=== PATIENT | male | born 1930 | race Caucasian/White ===

== ENCOUNTER 2021-10-25 23:34 | Observation (INO) ==
[2021-10-26] MEDS ORDERED: KETOROLAC TROMETHAMINE 15 MG/ML VIAL IV ONE (00:38)
[2021-10-26] MEDS ORDERED: ACETAMINOPHEN 500 MG TAB PO STA (00:38)
[2021-10-26] MEDS ORDERED: SODIUM CHLORIDE 0.9% 1000ML 1,000 ML IV SCH (00:45)
[2021-10-26] MEDS ORDERED: ACETAMINOPHEN 1000 MG/100 ML IV IV STA (00:52)
--- NOTE | 2021-10-26 00:58 | Emergency Department Note ---
Impression & Plan Weakness, Hypotension, Acute dehydration, COVID-19, Pneumonia ED Provider Note NAME: ANNIA MAGDALENO AGE: 89 SEX: M : 1930 ARRIVES VIA: Ambulance INFORMANT: [Patient][family] ED PROVIDER(S): [Roland Negrete MD] CHIEF COMPLAINT: Weakness HISTORY OF PRESENT ILLNESS: Patient is an 89-year-old male who presents to the ER with some congestion that was noticed about 3 days ago. Things have progressed. The patient has become more congestion, more tired, more fatigued. When he first became ill, he was tested negative for COVID. Today, when he seemed worse, he was tested again and the COVID test was positive. Today, the patient's been running a fever. His blood pressure was recorded low at home. He could barely stand or even hold his head up. The family was c oncerned and EMS was summoned. The patient denies any shortness of breath or pain. He does feel weak and tired. There has been no vomiting or diarrhea. The patient lives currently with his . His daughter is at the bedside and provides most of the history. REVIEW OF SYSTEMS: See HPI for pertinent positives and negatives. A total of ten systems were reviewed and were otherwise negative. PMHx/PSHx: See Below SOCIAL HISTORY: See Below. PHYSICAL EXAM: GENERAL: Patient is in no acute distress. Thin and frail. HEENT: No acute trauma, normocephalic atraumatic, mucous membranes moist, no nasal congestion, no scleral icterus. NECK: No stridor, no adenopathy, no meningismus, trachea is midline. LUNGS: Scattered crackles bilaterally, no respiratory distress, no wheezing. HEART: Without murmurs gallops or rubs, regular rate and rhythm. ABDOMEN: Soft, nontender, bowel sounds positive, no peritonitis. EXTREMITIES: No cyanosis or edema, full range of motion of all the joints without pain or difficulty, no signs for acute trauma. NEUROLOGIC: Sleepy but awakes to voice, no speech slur. No focal weakness. SKIN: No rash, no jaundice, no diaphoresis. DIFFERENTIAL DIAGNOSIS: Infection, dehydration, COVID-19, UTI metabolic abnormality, hypo/hyperglycemia, electrolyte disturbance, anemia, hypoxia, cardiac sources, intracerebral event, toxicologic issues, stroke, TIA, as well as other pathologies. EMERGENCY DEPARTMENT COURSE/PROCEDURES: ECG: Indication was weakness. The ECG shows a normal sinus rhythm with a rate of 66. There are inverted T waves in the anterior and lateral leads. No ST elevation, no PVCs. The QTC was 465. No old ECGs to use for comparison. Continuous Cardiac Monitoring: An order was placed for continuous cardiac monitoring. The monitor shows a rate of 62 with normal sinus rhythm. Critical Care Note: I have personally spent 39 minutes of critical care time in the direct management of this patient. This includes bedside care, i nterpretation of diagnostic studies, and testing, discussion with consultants, patient, and family members, and other required patient management activities. This 39 minutes is in excess of all separately billable procedures. MEDICAL DECISION MAKING: There is no leukocytosis. A mild anemia was seen with a hemoglobin of 11.5. No old or hemoglobin values available for comparison. Platelet count was low at 109. No renal failure, no significant electrolyte abnormality. Lactic acid level was not elevated making severe sepsis less likely. ECG showed a normal si nus rhythm. There were some inverted T waves. No old ECGs available for comparison. Cardiac troponin was mildly elevated, this elevation could be consistent with cardiac injury or potentially demand ischemia. The patient appeared to be in a euthyroid state. COVID test returned positive. Chest film shows a potential left base infiltrate versus atelectasis. No CHF. No pneumothorax. On exam, the patient was quite sleepy and appeared dehydrated clinically. The patient was given IV saline, 1 L. He was given IV Toradol, IV ceftriaxone and IV Tylenol. The patient presents with weakness, fatigue, hypotension. He was dehydrated clinically. He may have a developing pneumonia at the left base. Given his age, given his findings and complaints, he does require a hospital stay. I spoke with the patient's daughter, I talked to the patient. I did speak with case management. The on-call hospitalist was consulted. Past Med/Surg History Medical History Hypertension Social History Smoking Status: Never smoker Feels Safe at Home: Yes Allergies Allergies Allergy/AdvReac Type Severity Reaction Status Date / Time No Known Allergies Allergy Verified 10/26/21 01:12 Home Meds Home Medications Medication Instructions Recorded Confirmed apixaban 5 mg tablet (Eliquis) 5 mg PO BID 10/26/21 10/26/21 levothyroxine 50 mcg tablet 50 mcg PO DAILYBB 10/26/21 10/26/21 (Synthroid) lisinopril 20 mg tablet 20 mg PO DAILY 10/26/21 10/26/21 metoprolol succinate 50 mg 50 mg PO DAILY 10/26/21 10/26/21 tablet,extended release 24 hr multivitamin 1 tab PO DAILY 10/26/21 10/26/21 omega-3 fatty acids 1,250 mg 1,250 mg PO DAILY 10/26/21 10/26/21 capsule saw palmetto 450 mg capsule 0 mg PO DAILY 10/26/21 10/26/21 Results & Data (ED) Vital Signs Vital Signs - 24 hr 10/25/21 23:47 10/25/21 23:48 10/25/21 23:55 Temperature 36.7 C 36.7 C Temperature Source Oral Oral Pulse Rate 62 Pulse Rate [Apical] 65 Pulse Rhythm Pulse Rhythm [Apical] Regular Pulse Strength [Apical] Normal Respiratory Rate 22 22 Respiratory Effort / Characteristics Non-Labored Spontaneous Non-Labored Spontaneous Respiratory Depth Normal Normal Respiratory Pattern Regular Regular Blood Pressure 105/57 L Blood Pressure [Right Arm] 92/59 L Blood Pressure Mean 73 Blood Pressure Mean [Right Arm] 70 Blood Pressure Position Semi-fowlers Blood Pressure Position [Right Arm] Semi-fowlers Pulse Oximetry 94 94 94 Oxygen Delivery Method Room Air Room Air Room Air Oxygen Flow Rate 0 Sepsis Recent Fever Within 48 Hours Yes Sepsis New/Unexplained Change in Mental Status No Sepsis Action Taken by Nursing No Action Required 10/26/21 01:20 10/26/21 02:00 10/26/21 04:00 Temperature Temperature Source Pulse Rate 53 L Pulse Rate [Apical] 52 L 47 L Pulse Rhythm Regular Pulse Rhythm [Apical] Regular Regular Pulse Strength [Apical] Normal Normal Respiratory Rate 22 20 20 Respiratory Effort / Characteristics Non-Labored Spontaneous Non-Labored Spontaneous Respiratory Depth Normal Normal Respiratory Pattern Regular Regular Blood Pressure Blood Pressure [Right Arm] 118/57 L 125/57 L Blood Pressure Mean Blood Pressure Mean [Right Arm] 77 79 Blood Pressure Position Blood Pressure Position [Right Arm] Lying Lying Pulse Oximetry 96 95 94 Oxygen Delivery Method Room Air Room Air Room Air Oxygen Flow Rate Sepsis Recent Fever Within 48 Hours Sepsis New/Unexplained Change in Mental Status Sepsis Action Taken by Nursing 10/26/21 06:00 Temperature Temperature Source Pulse Rate Pulse Rate [Apical] 46 L Pulse Rhythm Pulse Rhythm [Apical] Regular Pulse Strength [Apical] Normal Respiratory Rate 20 Respiratory Effort / Characteristics Non-Labored Spontaneous Respiratory Depth Normal Respiratory Pattern Regular Blood Pressure Blood Pressure [Right Arm] 97/50 L Blood Pressure Mean Blood Pressure Mean [Right Arm] 65 Blood Pressure Position Blood Pressure Position [Right Arm] Lying Pulse Oximetry 94 Oxygen Delivery Method Room Air Oxygen Flow Rate Sepsis Recent Fever Within 48 Hours Sepsis New/Unexplained Change in Mental Status Sepsis Action Taken by [facility] Medications Current Medication List: was personally reviewed by me Laboratory Data Attestation: I reviewed the patient's lab results. Result diagrams: 10/26/21 10:49 10/26/21 10:49 Lab Results 10/25/21 10/25/21 10/25/21 Range/Units 23:07 23:07 23:07 WBC 6.08 (4.8-10.8) K/ul RBC 4.01 L (4.63-6.08) M/uL Hgb 11.5 L (14.0-18.0) g/dl Hct 35.6 L (40.1-51.0) % MCV 88.8 (80.0-100.0) fL MCH 28.7 (25.0-34.0) pg MCHC 32.3 (32.0-36.0) g/dL RDW Std Deviation 48.3 H (36.4-46.3) fL RDW Coeff of Judy 15.0 H (11.5-14.5) % Plt Count 109 L (130-400) K/uL MPV 13.2 H (9.4-12.4) fL Immature Gran % (Auto) 0.3 % Neut % (Auto) 73.1 % Lymph % (Auto) 12.8 % [place] % (Auto) 13.3 % Eos % (Auto) 0.0 % Baso % (Auto) 0.5 % Neut # (Auto) 4.44 (1.4-6.5) K/uL Lymph # (Auto) 0.78 L (1.2-3.4) K/uL [place] # (Auto) 0.81 (0.24-0.82) K/uL Eos # (Auto) 0.00 (0-0.50) K/uL Baso # (Auto) 0.03 (0-0.2) K/uL Immature Gran # (Auto) 0.02 (0.00-0.02) K/uL Sodium 135 L (136-145) mmol/L Potassium 3.9 (3.5-5.1) mmol/L Chloride 103 (98-107) mmol/L Carbon Dioxide 25 (21-32) mmol/L Anion Gap 7 (3-11) BUN 29 H (6-23) mg/dl Creatinine 1.32 (0.6-1.4) mg/dl Est Cr Clr Drug Dosing 35.5 ml/min Est GFR ( Amer) 55.0 ml/min Est GFR (Non-Af Amer) 47.5 ml/min BUN/Creatinine Ratio 22.0 H (10-20) Glucose 194 H (70-99(Fasting)) mg/dl Lactate (0.4-2.0) mmol/L Calcium 8.4 L (8.5-10.1) mg/dl Magnesium 1.7 (1.7-2.4) mg/dl Total Bilirubin 0.7 (0.2-1.0) mg/dl AST 26 (13-39) U/L ALT 17 (7-52) U/L Alkaline Phosphatase 79 (34-104) U/L Troponin I High Sens 34.8 H (0-20) pg/ml Total Protein 5.8 L (6.0-8.3) gm/dl Albumin 3.6 (3.4-5.0) gm/dl Globulin 2.2 L (2.5-4.0) gm/dl Albumin/Globulin Ratio 1.6 (0.9-2) TSH 1.810 (0.300-4.500) uIu/ml SARS-CoV-2, RNA, NAAT (NEGATIVE) 10/25/21 10/26/21 Range/Units 23:50 01:18 WBC (4.8-10.8) K/ul RBC (4.63-6.08) M/uL Hgb (14.0-18.0) g/dl Hct (40.1-51.0) % MCV (80.0-100.0) fL MCH (25.0-34.0) pg MCHC (32.0-36.0) g/dL RDW Std Deviation (36.4-46.3) fL RDW Coeff of Judy (11.5-14.5) % Plt Count (130-400) K/uL MPV (9.4-12.4) fL Immature Gran % (Auto) % Neut % (Auto) % Lymph % (Auto) % [place] % (Auto) % Eos % (Auto) % Baso % (Auto) % Neut # (Auto) (1.4-6.5) K/uL Lymph # (Auto) (1.2-3.4) K/uL [place] # (Auto) (0.24-0.82) K/uL Eos # (Auto) (0-0.50) K/uL Baso # (Auto) (0-0.2) K/uL Immature Gran # (Auto) (0.00-0.02) K/uL Sodium (136-145) mmol/L Potassium (3.5-5.1) mmol/L Chloride (98-107) mmol/L Carbon Dioxide (21-32) mmol/L Anion Gap (3-11) BUN (6-23) mg/dl Creatinine (0.6-1.4) mg/dl Est Cr Clr Drug Dosing ml/min Est GFR ( Amer) ml/min Est GFR (Non-Af Amer) ml/min BUN/Creatinine Ratio (10-20) Glucose (70-99(Fasting)) mg/dl Lactate 1.0 (0.4-2.0) mmol/L Calcium (8.5-10.1) mg/dl Magnesium (1.7-2.4) mg/dl Total Bilirubin (0.2-1.0) mg/dl AST (13-39) U/L ALT (7-52) U/L Alkaline Phosphatase (34-104) U/L Troponin I High Sens (0-20) pg/ml Total Protein (6.0-8.3) gm/dl Albumin (3.4-5.0) gm/dl Globulin (2.5-4.0) gm/dl Albumin/Globulin Ratio (0.9-2) TSH (0.300-4.500) uIu/ml SARS-CoV-2, RNA, NAAT POSITIVE A* (NEGATIVE) Administered Medications Apixaban (Apixaban 5 Mg Tablet) 5 mg PO BID TOSHIA Stop: 11/25/21 10:44 Last Admin: 10/26/21 10:52 Dose: 5 mg Documented By: NOLVIA Dextrose/Sodium Chloride (D5w And Nss) 1,000 mls @ 100 mls/hr IV .Q10H TOSHIA Stop: 10/26/21 20:44 Last Admin: 10/26/21 12:44 Dose: 100 mls/hr Documented By: SAMEERA Levothyroxine Sodium (Levothyroxine Sodium 50 Mcg Tablet) 50 mcg PO DAILYBB TOSHIA Stop: 11/25/21 10:44 Last Admin: 10/26/21 10:52 Dose: 50 mcg Documented By: NOLVIA Lisinopril (Lisinopril 20 Mg Tab) 20 mg PO DAILY TOSHIA Stop: 11/25/21 10:44 Last Admin: 10/26/21 10:52 Dose: 20 mg Documented By: NOLVIA Metoprolol Succinate (Metoprolol Succ 50mg Ext Rel Tab) 50 mg PO DAILY TOSHIA Stop: 11/25/21 10:44 Last Admin: 10/26/21 10:54 Dose: Not Given Documented By: NOLVIA Multivitamins (Multivitamin Tab) 1 tab PO DAILY TOSHIA Stop: 11/25/21 10:44 Last Admin: 10/26/21 10:52 Dose: 1 tab Documented By: NOLVIA Discontinued Medications Acetaminophen (Acetaminophen 500 Mg Tab) 1,000 mg PO NOW STA Stop: 10/26/21 00:39 Last Admin: 10/26/21 01:25 Dose: Not Given Documented By: YAS Acetaminophen (Acetaminophen 1000 Mg/100 Ml Iv) 1,000 mg IV NOW STA Stop: 10/26/21 00:53 Last Admin: 10/26/21 01:23 Dose: 1,000 mg Documented By: YAS Sodium Chloride (Nss 1000ml) 1,000 mls @ 999 mls/hr IV .Q1H1M TOSHIA Stop: 10/26/21 01:45 Last Infusion: 10/26/21 02:35 Dose: 0 mls/hr Documented By: Admin: 10/26/21 01:21 Dose: 999 mls/hr Documented By: YAS Ceftriaxone Sodium (Rocephin) 2,000 mg in 70 mls @ 140 mls/hr IV NOW STA Stop: 10/26/21 03:25 Last Infusion: 10/26/21 04:02 Dose: 0 mls/hr Documented By: Admin: 10/26/21 03:12 Dose: 140 mls/hr Documented By: YAS Ketorolac Tromethamine (Ketorolac Tromethamine 15 Mg/Ml Vial) 10 mg IV NOW ONE Stop: 10/26/21 00:39 Last Admin: 10/26/21 01:24 Dose: 10 mg Documented By: YAS Imaging Data Radiologist's Impression: Chest X-Ray 10/26/21 00:38 XR chest 1V portable HISTORY: 89 years-old Male weakness acute weakness COMPARISON: None TECHNIQUE: AP view of the chest FINDINGS: Cardiac silhouette is upper limits of normal in size. Prior median sternotomy. No pneumothorax or overt pulmonary edema. Small left with possible trace right pleural effusions. Mild left basilar consolidation. The bones appear grossly intact. IMPRESSION: 1. Small left pleural effusion with left basilar densities suggestive of atelectasis versus pneumonia. 2. Mild cardiomegaly. ACT 112: Negative or not required by law. The above report was generated using voice recognition software. It may contain grammatical, syntax or spelling errors. Electronically signed by: Damian Patel M.D. 10/26/2021 8:50 AM Discharge Plan Visit Data Chief Complaint: Weakness ED Provider: Roland Negrete Discharge Problem: Weakness, Hypotension, Acute dehydration, COVID-19, Pneumonia Patient Disposition: Admitted As Inpatient Condition: Fair Discharge Instructions Interventions: ED Discharge Assessment Last Done: 10/26/21 10:09
[2021-10-26 01:06] LABS: Hematocrit (blood only) 35.6 % (40.1-51.0); Hemoglobin 11.5 g/dl (14.0-18.0); Mean Corpuscular Hemoglobin 28.7 pg (25.0-34.0); Mean Corpuscular Hgb Conc 32.3 g/dL (32.0-36.0); Mean Corpuscular Volume 88.8 fL (80.0-100.0); RDW Standard Deviation 48.3 fL (36.4-46.3); Red Blood Count 4.01 M/uL (4.63-6.08); White Blood Count 6.08 K/ul (4.8-10.8)
[2021-10-26 01:13] LABS: Basophils # (auto) 0.03 K/uL (0-0.2); Basophils % (auto) 0.5 %; Immature Granulocytes # (auto) 0.02 K/uL (0.00-0.02); Immature Granulocytes % (auto) 0.3 %; Lymphocytes # (auto) 0.78 K/uL (1.2-3.4); Lymphocytes % (auto) 12.8 %; Mean Platelet Volume 13.2 fL (9.4-12.4); Monocytes # (auto) 0.81 K/uL (0.24-0.82); Monocytes % (auto) 13.3 %; Neutrophils # (auto) 4.44 K/uL (1.4-6.5); Neutrophils % (auto) 73.1 %; Platelet Count 109 K/uL (130-400)
[2021-10-26 01:30] LABS: Albumin Globulin Ratio 1.6 (0.9-2); Albumin Level 3.6 gm/dl (3.4-5.0); Bilirubin,Total 0.7 mg/dl (0.2-1.0); Calcium 8.4 mg/dl (8.5-10.1); Creatinine Clr Calc Pharmacy 35.5 ml/min; Est GFR (Non-African American) 47.5 ml/min; Globulin 2.2 gm/dl (2.5-4.0); Magnesium 1.7 mg/dl (1.7-2.4); Potassium 3.9 mmol/L (3.5-5.1); Total Protein 5.8 gm/dl (6.0-8.3)
[2021-10-26 01:35] LABS: Troponin I High Sensitivity 34.8 pg/ml (0-20)
[2021-10-26] MEDS ORDERED: cefTRIAXone SODIUM 2,000 MG/70 ML BAG IV STA (02:56)
--- NOTE | 2021-10-26 08:51 | XRay Report ---
XR chest 1V portable HISTORY: 89 years-old Male weakness acute weakness COMPARISON: None TECHNIQUE: AP view of the chest FINDINGS: Cardiac silhouette is upper limits of normal in size. Prior median sternotomy. No pneumothorax or ove rt pulmonary edema. Small left with possible trace right pleural effusions. Mild left basilar consoli dation. The bones appear grossly intact. IMPRESSION: 1. Small left pleural effusion with left basilar densities suggestive of atelectasis versus pneumonia . 2. Mild cardiomegaly. ACT 112: Negative or not required by law. The above report was generated using voice recognition software. It may contain grammatical, syntax o r spelling errors. Electronically signed by: Damian Patel M.D. 10/26/2021 8:50 AM
--- NOTE | 2021-10-26 09:18 | Electrocardiogram Report ---
Test Reason : Blood Pressure : / mmHG Vent. Rate : 066 BPM Atrial Rate : 066 BPM P-R Int : 150 ms QRS Dur : 082 ms QT Int : 444 ms P-R-T Axes : 029 000 196 degrees QTc Int : 465 ms Normal sinus rhythm Left atrial enlargement Cannot rule out Old Septal infarct T-wave inversion in multiple leads (ischemia vs. CHILD NURSE vs. metabolic) Abnormal ECG No previous ECGs available Confirmed by Mike Mak ([id number]) on 10/26/2021 9:18:40 AM Referred By: REFERRED SELF Confirmed By:Mike Mak
--- NOTE | 2021-10-26 09:57 | History and Physical Report ---
DATE OF ADMISSION: 10/26/2021. CHIEF COMPLAINT: Weakness, COVID. HISTORY OF PRESENT ILLNESS: An 89-year-old male with past medical history significant for CAD, status post CABG 30 years ago, about 5 years ago had another AZ, no stents as per the daughter, history of hypothyroidism, hypertension, who lives at home with his , ambulates without support, comes because of weakness. As per the daughter, since last Wednesday, he has been having fevers, some mild cough,runny nose, feeling weak, poor appetite. They tested COVID a couple of days ago, it was negative and last night as he was getting worse, sleepy, lethargic and tested again and COVID came back positive and brought him to the hospital. He was COVID vaccinated 2 times, but not boosted. Currently saturating okay in the room. Chest x-ray was okay. The patient is somewhat drowsy. As per daughter, no complaints of headache, has a lot of runny nose, appetite is down. Denied any body aches or chest pain or abdominal pain. There was no nausea, not sure if he has diarrhea. Currently, no swelling in the legs. The patient's daughter say when he had AZ 5 years ago, they started him on a blood thinner, it looks like he is on Eliquis. ALLERGIES: No known drug allergies. PAST MEDICAL HISTORY: As mentioned above. PAST SURGICAL HISTORY: CABG, appendectomy. MEDICATIONS: The patient is on Eliquis 5 mg p.o. b.i.d., levothyroxine 50 mcg p.o. daily, lisinopril 20 mg p.o. daily, metoprolol succinate 50 mg p.o. daily, multivitamin 1 tablet daily, omega-3 fatty acid 1250 mg p.o. daily. FAMILY HISTORY: Noncontributory. SOCIAL HISTORY: No smoking, no alcohol. Lives with his . REVIEW OF SYSTEMS: As per HPI. The patient is hard of hearing and drowsy. Could not get complete review of symptoms. PHYSICAL EXAMINATION: GENERAL: The patient is old and frail, not in acute distress, somewhat drowsy. VITAL SIGNS: Temperature 36.7, pulse 46, blood pressure 97/50, respiratory rate 20, oxygen 94% on room air. HEENT: Pupils equal, round and reactive to light. Oral mucosa moist. NECK: No JVD. No neck masses. CARDIOVASCULAR: S1 and S2 heard. Regular rate and rhythm. No murmur, no gallop. RESPIRATORY SYSTEM: Normal AP diameter. No accessory muscle use. No wheezing, no crackles. ABDOMEN: Soft, bowel sounds present, nontender, no distention. CENTRAL NERVOUS SYSTEM: Drowsy, but arousable. No facial droop. Speech is clear. Obeys simple commands. EXTREMITIES: No edema, no erythema. LABORATORY DATA: WBC 6, hemoglobin 11.5, hematocrit 35.6, platelets 109. Sodium 135, potassium 3.9, chloride 103, bicarbonate 25, BUN 29, creatinine 1.3, serum glucose 194, lactate 1, calcium 8.4, magnesium 1.7, total bilirubin 0.7, AST 26, ALT 17, alkaline phosphatase 110. Troponin I high sensitivity 34.8. TSH 1.8. Rapid COVID test positive. Chest x-ray: No acute findings. EKG: Normal sinus rhythm, rate of 66, some T- wave inversions in anterolateral leads. No old EKG to compare. ASSESSMENT AND PLAN: This is an 89-year-old male who presents with weakness and found to be COVID positive. 1. Weakness, COVID positive: COVID vaccinated, but not boosted. Saturating okay on room air. We will give fluids and monitor in the hospital, currently saturating okay on room air. 2. Hypotension and bradycardia: We will give his blood pressure medications with holding parameters. Getting fluids. 3. Coronary artery disease, status post coronary artery bypass grafting: On Eliquis, lisinopril, metoprolol; metoprolol with holding parameters. If any concern, we will consult cardiology.. Follow troponin. 4. Thrombocytopenia: We do not have baseline laboratories. We will follow and he needs to follow up with the primary care physician. 5. Deep venous thrombosis prophylaxis: On Eliquis. DISPOSITION: Admit to med-tele. PT/OT prior to discharge. Social service to help with discharge planning. Job ID: [id number] MTDD
[2021-10-26] MEDS ORDERED: ACETAMINOPHEN 325 MG TAB PO PRN (10:18)
[2021-10-26] MEDS ORDERED: NITROGLYCERIN SL 0.4 MG/TAB TAB SL PRN (10:18)
[2021-10-26] MEDS ORDERED: D5W AND NSS 1,000 ML IV SCH (10:45)
[2021-10-26] MEDS ORDERED: METOPROLOL SUCC 50MG EXT REL TAB PO SCH (10:45)
[2021-10-26] MEDS ORDERED: lisinopril 20 MG TAB PO SCH (10:45)
[2021-10-26] MEDS: APIXABAN 5 MG TABLET PO SCH ×2 (10:52→21:02)
[2021-10-26] MEDS: MULTIVITAMIN TAB PO SCH (10:52)
[2021-10-26] MEDS: LEVOTHYROXINE SODIUM 50 MCG TABLET PO SCH (10:52)
[2021-10-26 11:15] LABS: Basophils # (auto) 0.04 K/uL (0-0.2); Basophils % (auto) 0.7 %; Eosinophils # (auto) 0.05 K/uL (0-0.50); Eosinophils % (auto) 0.8 %; Hemoglobin 12.9 g/dl (14.0-18.0); Immature Granulocytes # (auto) 0.02 K/uL (0.00-0.02); Immature Granulocytes % (auto) 0.3 %; Lymphocytes # (auto) 1.67 K/uL (1.2-3.4); Lymphocytes % (auto) 27.3 %; Mean Corpuscular Hgb Conc 32.3 g/dL (32.0-36.0); Mean Corpuscular Volume 89.9 fL (80.0-100.0); Mean Platelet Volume 12.5 fL (9.4-12.4); Monocytes # (auto) 0.75 K/uL (0.24-0.82); Monocytes % (auto) 12.3 %; Neutrophils # (auto) 3.59 K/uL (1.4-6.5); Neutrophils % (auto) 58.6 %; Platelet Count 103 K/uL (130-400); RDW Coefficient of Variation 15.2 % (11.5-14.5); RDW Standard Deviation 49.5 fL (36.4-46.3); Red Blood Count 4.45 M/uL (4.63-6.08); White Blood Count 6.12 K/ul (4.8-10.8)
[2021-10-26 11:39] LABS: Calcium 8.5 mg/dl (8.5-10.1); Creatinine Clr Calc Pharmacy 33.2 ml/min; Est GFR (African American) 50.8 ml/min; Est GFR (Non-African American) 43.9 ml/min; Magnesium 1.8 mg/dl (1.7-2.4); Potassium 3.8 mmol/L (3.5-5.1)
[2021-10-26 11:45] LABS: INR 1.2 (0.9-1.1); Partial Thromboplastin Time 28.2 Seconds (21.0-31.0); Prothrombin Time 12.4 Seconds (9.0-12.0)
[2021-10-27] MEDS ORDERED: DICLOFENAC SOD 1% GEL 100 GM TUBE EXT PRN (04:29)
[2021-10-27] MEDS: LEVOTHYROXINE SODIUM 50 MCG TABLET PO SCH (06:13)
[2021-10-27 07:49] LABS: Hematocrit (blood only) 38.3 % (40.1-51.0); Hemoglobin 12.6 g/dl (14.0-18.0); Mean Corpuscular Hemoglobin 28.6 pg (25.0-34.0); Mean Corpuscular Hgb Conc 32.9 g/dL (32.0-36.0); Mean Platelet Volume 12.1 fL (9.4-12.4); Platelet Count 106 K/uL (130-400); RDW Coefficient of Variation 14.8 % (11.5-14.5); RDW Standard Deviation 47.4 fL (36.4-46.3); White Blood Count 5.48 K/ul (4.8-10.8)
[2021-10-27] MEDS: MULTIVITAMIN TAB PO SCH (08:03)
[2021-10-27] MEDS: APIXABAN 5 MG TABLET PO SCH ×2 (08:03→21:30)
[2021-10-27 08:41] LABS: Estimated Average Glucose 126 mg/dl
[2021-10-27 08:46] LABS: BUN Creatinine Ratio 26.4 (10-20); Blood Urea Nitrogen 28 mg/dl (6-23); Calcium 8.2 mg/dl (8.5-10.1); Carbon Dioxide 24 mmol/L (21-32); Chloride 104 mmol/L (98-107); Creatinine Clr Calc Pharmacy 44.2 ml/min; Est GFR (African American) 71.8 ml/min; Est GFR (Non-African American) 61.9 ml/min; Glucose 116 mg/dl (70-99(Fasting))
[2021-10-27 09:50] LABS: Potassium 4.1 mmol/L (3.5-5.1)
--- NOTE | 2021-10-27 12:45 | Hospitalist Progress Note ---
Date of Service October 27, 2021 Assessment & Plan (1) COVID-19: (2) Hypotension: (3) Weakness: (4) Acute dehydration: Plan Patient presented with generalized weakness and mostly upper resp symptoms Had tested positive to COVID at home few days before Was noted to be weak and hypotensive on admission XR chest show small left pleural effusion with densities suggestive of atelectasis vs pneumonia Patient has COVID infection Possible COVID 19 pneumonia Reports improvement of symptoms Remains on room air No COVID specific therapies at this time Continue supportive care Hypotension likely related to COVID infection +/- home antihypertensives Hypotension is resolved Has been hypertensive. Will resume home lisinopril at half his home dose 10mg daily Was bradycardic yesterday. Will start metoprolol succinate at half his home dose and monitor Troponin was mildly elevated on presentation at 34, trended down EKG showed TWI in III, V3-6 on presentation. This is similar to an old EKG that patient's daughter showed me yesterday. She stated that his EKG usually brings concerns when he goes to a new ER/hospital, hence the reason she carries a copy of an old one Troponin elevation may be due to demand ischemia in the setting of illness Considering how weak he was reported to be at home, he is doing better today Will get PT/OT eval Continue home eliquis Possible dc tomorrow Admission and Anticipated Discharge Date Admission Date: October 26, 2021 Subjective Patient seen and examined Patient reports feeling better today Reports generalized weakness is much improved Reports sore throat is resolved Reports cough is improving Denied any chest pain, shortness of breath Denied any nausea, vomiting,abd pain, diarrhea Denied dysuria, freq, urgency Physical Exam Constitutional: + well hydrated; no acute distress Eyes: PERRL, conjunctivae normal, anicteric sclerae ENMT: external ear and nose normal, oropharynx normal Respiratory: normal respiratory effort, lungs clear to auscultation Cardiovascular: Rate/Rhythm: regular rate and regular rhythm S1 S2 Gastrointestinal (Abdomen): normal bowel sounds, soft, nontender, no hepatosplenomegaly Musculoskeletal: +trace pedal edema Neurologic: PERRL, EOMI, accommodation nl, no face palsy, no dysarthria Psychiatric: A+Ox3, euthymic affect Results & Data Results & Data ([facility]) Vital Signs (Past 12 Hours) Vital Signs Temp Pulse Pulse Resp BP Pulse Ox O2 Del Method 10/27/21 11:47 36.4 C L 74 18 161/86 H 94 Room Air 10/27/21 07:26 59 L 10/27/21 07:26 Room Air 10/27/21 08:01 36.7 C 77 18 147/80 H 96 Room Air 10/27/21 04:31 36.8 C 65 20 152/80 H 97 Room Air 10/27/21 02:29 72 10/27/21 00:46 37.1 C 70 16 168/85 H 97 Room Air Laboratory Results Abnormal lab results 10/26/21 10/27/21 10/27/21 Range/Units 10:49 07:41 07:41 RBC 4.40 L (4.63-6.08) M/uL Hgb 12.6 L (14.0-18.0) g/dl Hct 38.3 L (40.1-51.0) % RDW Std Deviation 47.4 H (36.4-46.3) fL RDW Coeff of Judy 14.8 H (11.5-14.5) % Plt Count 106 L (130-400) K/uL BUN 28 H (6-23) mg/dl BUN/Creatinine Ratio 26.4 H (10-20) Glucose 116 H (70-99(Fasting)) mg/dl Hemoglobin A1c 6.0 H (4.5-5.6) % Calcium 8.2 L (8.5-10.1) mg/dl (1) Hypotension Hypotension type: unspecified hypotension type Qualified Code(s): I95.9 - Hypotension, unspecified
[2021-10-27] MEDS ORDERED: lisinopril 10 MG TAB PO STA (13:10)
[2021-10-27] MEDS ORDERED: METOPROLOL SUCC 25MG EXT REL TAB PO STA (13:21)
[2021-10-28 03:15] LABS: Appearance Urine Clear (Clear); Bilirubin Urine Negative (Negative); Blood Urine Negative (Negative); Color Urine Yellow; Glucose Urine UA Negative (Negative); Ketones Urine Negative (Negative); Leukocyte Esterase Urine Negative (Negative); Nitrite Urine Negative (Negative); Protein Urine Negative (Negative); Specific Gravity Urine 1.015 (1.000-1.030); Urobilinogen Urine Negative (Negative); pH Urine 5.5 (4.5-7.5)
[2021-10-28] MEDS: LEVOTHYROXINE SODIUM 50 MCG TABLET PO SCH (06:18)
[2021-10-28] MEDS ORDERED: lisinopril 10 MG TAB PO SCH (09:00)
[2021-10-28] MEDS ORDERED: METOPROLOL SUCC 25MG EXT REL TAB PO SCH (09:00)
[2021-10-28] MEDS: APIXABAN 5 MG TABLET PO SCH (09:14)
[2021-10-28] MEDS: MULTIVITAMIN TAB PO SCH (09:14)
[2021-10-28 09:56] LABS: Hematocrit (blood only) 38.3 % (40.1-51.0); Hemoglobin 12.6 g/dl (14.0-18.0); Mean Platelet Volume 12.1 fL (9.4-12.4); Platelet Count 107 K/uL (130-400); White Blood Count 4.06 K/ul (4.8-10.8)
[2021-10-28 10:16] LABS: Mean Corpuscular Hemoglobin 28.5 pg (25.0-34.0); Mean Corpuscular Hgb Conc 32.9 g/dL (32.0-36.0); Mean Corpuscular Volume 86.7 fL (80.0-100.0); RDW Coefficient of Variation 14.7 % (11.5-14.5); RDW Standard Deviation 46.9 fL (36.4-46.3); Red Blood Count 4.42 M/uL (4.63-6.08)
[2021-10-28 11:11] LABS: BUN Creatinine Ratio 23.6 (10-20); Calcium 8.5 mg/dl (8.5-10.1); Creatinine Clr Calc Pharmacy 44.2 ml/min; Est GFR (African American) 71.8 ml/min; Est GFR (Non-African American) 61.9 ml/min; Potassium 3.9 mmol/L (3.5-5.1)
--- NOTE | 2021-10-28 12:45 | Discharge Summary ---
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 As per the daughter, since last Wednesday, he has been having fevers, some mild cough,runny nose, feeling weak, poor appetite. They tested COVID a couple of days ago, it was negative and last night as he was getting worse, sleepy, lethargic and tested again and COVID came back positive and brought him to the hospital. He was COVID vaccinated 2 times, but not boosted. Currently saturating okay in the room. Chest x-ray was okay. The patient is somewhat drowsy. As per daughter, no complaints of headache, has a lot of runny nose, appetite is down. Denied any body aches or chest pain or abdominal pain. There was no nausea, not sure if he has diarrhea. Currently, no swelling in the legs. The patient's daughter say when he had OK 5 years ago, they started him on a blood thinner, it looks like he is on Eliquis. Admission Exam Per Admitting Provider GENERAL: The patient is old and frail, not in acute distress, somewhat drowsy. VITAL SIGNS: Temperature 36.7, pulse 46, blood pressure 97/50, respiratory rate 20, oxygen 94% on room air. HEENT: Pupils equal, round and reactive to light. Oral mucosa moist. NECK: No JVD. No neck masses. CARDIOVASCULAR: S1 and S2 heard. Regular rate and rhythm. No murmur, no gallop. RESPIRATORY SYSTEM: Normal AP diameter. No accessory muscle use. No wheezing, no crackles. ABDOMEN: Soft, bowel sounds present, nontender, no distention. CENTRAL NERVOUS SYSTEM: Drowsy, but arousable. No facial droop. Speech is clear. Obeys simple commands. EXTREMITIES: No edema, no erythema. Principal Diagnosis COVID 19 infection Discharge Exam Constitutional + well hydrated; no acute distress Eyes PERRL, conjunctivae normal, anicteric sclerae ENMT external ear and nose normal, oropharynx normal Respiratory normal respiratory effort, lungs clear to auscultation Cardiovascular Rate/Rhythm: regular rate and regular rhythm S1 S2 Gastrointestinal (Abdomen) normal bowel sounds, soft, nontender, no hepatosplenomegaly Musculoskeletal Trace pedal edema Neurologic PERRL, EOMI, accommodation nl, no face palsy, no dysarthria Psychiatric A+Ox3, euthymic affect Discharge Data Allergies Allergy/AdvReac Type Severity Reaction Status Date / Time No Known Allergies Allergy Verified 10/26/21 01:12 Consultations 10/26/21 02:55 ED Decision to Admit Stat Hospital Course (1) COVID-19: (2) Hypotension: (3) Weakness: (4) Acute dehydration: Plan Patient presented with generalized weakness and mostly upper resp symptoms Had tested positive to COVID at home few days before Was noted to be weak and hypotensive on admission XR chest show small left pleural effusion with densities suggestive of atelectasis vs pneumonia Patient has COVID infection Possible COVID 19 pneumonia Reports improvement of symptoms Remains on room air No COVID specific therapies at this time Continue supportive care Hypotension likely related to COVID infection +/- home antihypertensives Was also bradycardic Home lisinopril and metoprolol were held initially and later resumed at half home dose - 10mg and 25mg dailly respectively BP and HR currently stable Reviewed med changes with daughter who came to visit Daughter advised to monitor BP at home and continue current lower dose until follow up with PCP Troponin was mildly elevated on presentation at 34, trended down EKG showed TWI in III, V3-6 on presentation. This is similar to an old EKG that patient's daughter showed me yesterday. She stated that his EKG usually brings concerns when he goes to a new ER/hospital, hence the reason she carries a copy of an old one Troponin elevation may be due to demand ischemia in the setting of illness Patient's weakness is resolved. Has been ambulating without assistance over the past 24h Continue home eliquis Total Time Total Time Spent Total Time Spent (In Minutes): 45 Total Time Includes: Examination of the Patient, Discharge Planning, Medication Reconciliation and Other Discharge Plan Discharge Items Patient Disposition: Home - Self-Care Reason For Visit: WEAKNESS Discharge Diagnosis: COVID 19 infection Condition on Discharge: Fair Activity: Resume your previous activity Non-emergency contact: Primary Care Provider Call non-emergency contact if: you have any medication questions Follow-up/Referrals: José Miguel De La Torre MD [Primary Care Provider] - 11/05/21 1:00 pm Diet: Heart Healthy and Low Sodium (2gm) Addtl Attending Provider Instructions: Mr Rodríguez You came to the hospital complaining of weakness. You were found to have COVID infection. However, you did not require COVID specific therapies or require any oxygen while inpatient. Your symptoms improved remarkably and you are being discharged home. Please ensure you continue home isolation for COVID for 10 days from positive test. Your blood pressure and heart rate were low on admission. Your lisinopril and metoprolol doses were reduced. Your blood pressure and heart rate are normal at this time. Please continue the reduced doses for now and monitor your blood pressure at home. You can keep a log of your home BP measurements for your Primary Doctor. Please ensure follow up with your Primary Doctor. It was a pleasure taking care of you. Pending Studies at Discharge: No Stand-Alone Forms: My [facility] [employer], Smoking Cessation Medications and DC Order Prescriptions: Continued multivitamin Tablet 1 tab PO DAILY levothyroxine [Synthroid] 50 mcg tablet 50 mcg PO DAILYBB saw palmetto 450 mg Capsule 0 mg PO DAILY Rx Instructions: UNSURE OF STRENGTH omega-3 fatty acids 1,250 mg Capsule 1,250 mg PO DAILY Eliquis 5 mg tablet 5 mg PO BID Rx Instructions: PER PT'S FAMILY "HAVE BEEN ONLY TAKING IN AM, D/T BRUISES ON ARMS, THOUGHT IT WOULD HELP HEAL THEM FASTER". Changed metoprolol succinate 50 mg tablet extended release 24 hr 25 mg PO DAILY Qty: 15 0RF lisinopril 20 mg tablet 10 mg PO DAILY Qty: 15 0RF Discharge Orders: Discharge Order (Routine); Ordered 10/28/21 Ordered By: Elba Flores Admission Data Admit Date/Time: 10/26/21 06:16 Attending Provider: Elba Flores I. Admit Provider: Cortez Ceja Primary Care Provider: José Miguel De La Torre Other Providers: Cortez Ceja Other Interventions: Discharge Summary Assessment (RN) Last Done: 10/28/21 13:25
== END 2021-10-28 15:41 | disposition home or self-care (01) ==
LOC: ED 23:34 → EDINP 10-26 06:16 → INTOOBSV 10-26 06:16 → 2E 10-26 10:09